=== PATIENT | female | born 1995 ===

== ENCOUNTER 2016-09-11 06:34 | Emergency (ER) | payer OTHER ==
[2016-09-11 06:46] VITALS: BMI 31.4
--- NOTE | 2016-09-11 11:55 | OBDCSUM ---
Datetime: 09/11/2016 09:24 Discharged to, Provider: Home Follow up at, Provider: [facility] Disch Instr Activity: Normal activity Disch Instr Diet: Regular Discharge Diagnosis, Provider: Term Delivered Discharge Time: 09/11/2016 09:28 Follow up in weeks, Provider: August @ 10:00 Disch Referrals: None
--- NOTE | 2016-09-11 11:56 | OBHP ---
Datetime: 09/11/2016 09:30 IP Adm Impression: Term, intrauterine ; No Active Labor; Intact Membranes IP Admit Plan: Discharge home Admit Comment, IP Provider: Patient was seen and examined at bedside. No LOF and/or vaginal bleeding . PE:VE: No cervix changes noted. -Reassuring FHR Plan: Patient is stable to be discharge home. -Ambulation at Home was encouraged -Maintain good hydration -Labor precautions provided. Patient verbalized understanding. -Case discussed with Dr. Crystal Oconnor PGY1 Agree with above...ANGI FHR - Baseline A Provider: 130 Membranes, Provider: Intact IP Hx Assessment: The History has been Reviewed and is Current EGA AdmitDate IP: 39.3 Vital Signs Provider: Reviewed; Within Normal Limits IP Chief Complaint: Uterine contractions; Maternal discomfort NICHD Variability Prov Fetus A: Moderate 6-25bpm NICHD Accel Fetus A IP Provider: 15X15 FHR Category Provider Fetus A: Category I NICHD Decel Fetus A IP Provider: None Datetime: 09/11/2016 08:00 Pelvic Type - PN: Adequate Extremities - PN: Normal Heart - PN: Normal Thyroid - PN: Normal Neurologic - PN: Normal HEENT - PN: Normal General - PN: Normal Weight - Estimated: 3266 Presentation-Admit: Vertex Comments, ACOG Physical Exam: ROS: General - no fatigue HEENT: No SHI; no visual disturbance CV: no CP; no palpitations RESP: No Cough; no SOB GI: No N/V/D : No F/U/D MS: no joint pain Gestation - Est Wks by US: 39.0 Genitourinary Exam: Normal
== END 2016-09-11 09:30 | disposition home or self-care (01) ==
LOC: H.EROB2 06:34
DX: O47.1 False labor at or after 37 completed weeks of gestation (principal); Z3A.39 39 weeks gestation of pregnancy

== ENCOUNTER 2016-09-16 14:00 | Inpatient (IN) | payer OTHER ==
[2016-09-16 14:44] VITALS: BMI 31.8
--- NOTE | 2016-09-16 14:52 | OBHP ---
Datetime: 09/16/2016 14:45 IP Adm Impression: Term, intrauterine Admit Comment, IP Provider: 20-year-old 010 at 40 weeks and 1 day gestational age complains of uterine contractions. Patient denies any vaginal bleeding or leakage of fluids. Patient reports good movement. records reviewed. course unremarkable. Past medical history none Past surgical history none Medications vitamins No known drug allergies Obstetrical history elective termination of 1 Social history no tobacco, no alcohol, no drugs Physical exam: Refer to physical exam findings Assessment: 20-year-old at 40 weeks 1 day gestational age with complaints of contractions, no evidence o f active labor at this time. Both maternal well-being and well-being reassuring at this time. Plan: We will observe patient had OB ED for signs of labor. Discussed plan with patient and all patient questions answered. Pelvic Type - PN: Adequate Extremities - PN: Normal Abdomen - PN: Normal Back - PN: Normal Breast - PN: Normal Lungs - PN: Normal Heart - PN: Normal Thyroid - PN: Normal Neurologic - PN: Normal HEENT - PN: Normal General - PN: Normal FHR - Baseline A Provider: 130s Membranes, Provider: Intact Contraction Comments Provider: q2-3min Pool Provider: Negative IP Hx Assessment: The History has been Reviewed and is Current EGA AdmitDate IP: 40.1 Vital Signs Provider: Reviewed; Within Normal Limits IP Chief Complaint: Uterine contractions NICHD Variability Prov Fetus A: Moderate 6-25bpm NICHD Accel Fetus A IP Provider: 15X15 FHR Category Provider Fetus A: Category I NICHD Decel Fetus A IP Provider: None Dilatation, Provider: 1-2 Effacement, Provider: 50 Station, Provider: -3 Genitourinary Exam: Normal DTRs - PN: Normal
[2016-09-16] MEDS: Lactated Ringer's 1,000 ML IV SCH ×2 (15:00→20:00)
[2016-09-16 15:35] LABS: BASO # 0.1 K/uL (0.0-0.2); BASO % 0.6 % (0.0-2.0); EOS # 0.1 K/uL (0.0-0.7); EOS % 1.2 % (0.0-4.0); HEMATOCRIT 35.9 % (34.0-47.0); LYMPH # 2.1 K/uL (1.0-4.3); MEAN CELL VOLUME 84.2 fl (81.0-99.0); MEAN CORPUSCULAR HEMOGLOBIN 28.1 pg (27.0-31.0); MEAN CORPUSCULAR HGB CONC 33.4 g/dL (33.0-37.0); MEAN PLATELET VOLUME 8.9 fl (7.2-11.7); MONO # 0.7 K/uL (0.0-0.8); MONO % 6.1 % (0.0-10.0); NEUT % 73.1 % (50.0-75.0); RED CELL DISTRIBUTION WIDTH 16.2 % (11.5-14.5); WHITE BLOOD COUNT 10.9 K/uL (4.8-10.8)
[2016-09-16] MEDS ORDERED: Nalbuphine 20 mg/ml Inj (1 ml) IVP ONE (20:13)
[2016-09-16] MEDS ORDERED: Fentanyl/Bupivacaine HCl 250 ML EPI ONE (23:38)
[2016-09-16] MEDS ORDERED: Bupivacaine HCl 0.25% PF (10 ml) Inj ONE (23:39)
[2016-09-17] MEDS ORDERED: Oxytocin 30 units/LR 500ML 500 ML IV ONE (03:00)
[2016-09-17] MEDS: Lactated Ringer's 1,000 ML IV SCH (08:18)
[2016-09-17] MEDS ORDERED: Lidocaine 1% Inj (20ml) ONE (08:57)
[2016-09-17] MEDS ORDERED: Bupivacaine HCl 0.25% PF (10 ml) Inj ONE (09:27)
--- NOTE | 2016-09-17 09:28 | OBPN ---
Datetime: 09/16/2016 20:10 IP Progress Impression: Normal progression of labor IP Progress Plan: Continue present management Membranes, Provider: Ruptured Contraction Comments Provider: q2-6min FHR - Baseline A Provider: 145 Gestation - Est Wks by US: 40.1 Presentation-Admit: Vertex IP Progress Note Comment: s: +rectal pressure with ctxs; denies h/a, scotomata, va disturbances o: rt side rim from 9-1:oo -1 to 0/100% i: 40.2wks Labor p: expectant vd maternal repositioing allow to labor down. Vital Signs Provider: Reviewed NICHD Accel Fetus A IP Provider: 15X15 FHR Category Provider Fetus A: Category I NICHD Variability Prov Fetus A: Moderate 6-25bpm NICHD Decel Fetus A IP Provider: None Datetime: 09/16/2016 14:45 Pool Provider: Negative Dilatation, Provider: 1-2 Effacement, Provider: 50 Station, Provider: -3 Datetime: 09/11/2016 08:00 Weight - Estimated: 3266 Datetime: 08/05/2016 22:41 Vital Signs Provider Details: heart reate 122
[2016-09-17 10:35] VITALS: TEMP 101.5
--- NOTE | 2016-09-17 13:44 | OBDS ---
DELIVERY PERSONNEL Delivery Doctor: Yang Palafox MD Visual Educator: S Rideg/ E Victor M MATERNAL INFORMATION Delivery Anesthesia: Epidural Medications in Delivery: pitocin 30 units in 500 ml lr Estimated Blood Loss (ml): 250 Placenta Cultured: No Maternal Complications: None Provider Comments: Intrapartum Dx: 40.2wks; labor PP Dx: same Procedure: ; placenta delivered spontaneoulsy and intact Ob: orossetos Anesth: epidural Findings: viable female; 3760g; 9_9 no complications Pt and remained in br ebl: 250cc LABOR SUMMARY EDC: 09/15/2016 00:00 No. Babies in Womb: 1 Attempted: No Labor Anesthesia: Epidural LABOR INFORMATION Reason for Induction: Not Applicable Onset of Labor: 09/17/2016 01:50 Complete Dilatation: 09/17/2016 06:10 Oxytocin: Augmentation Group B Beta Strep: Negative Steroids Given: None Reason Steroids Not Administered: Not Applicable MEMBRANES Membranes Rupture Method: Spontaneous Rupture of Membranes: 09/17/2016 01:45 Length of Rupture (hrs): 9.50 Amniotic Fluid Color: Clear Amniotic Fluid Amount: Moderate Amniotic Fluid Odor: Normal STAGES OF LABOR Stage 1 hrs: 4 Stage 1 min: 20 Stage 2 hrs: 5 Stage 2 min: 5 Stage 3 hrs: 0 Stage 3 min: 5 Total Time in Labor hrs: 9 Total Time in Labor min: 30 VAGINAL DELIVERY Episiotomy: None Laceration Extension: N/A Laceration Type: Periurethral Laceration Repair: Not Applicable Laceration Repair Note: bialteral hemostatic 1st degree periurethral lacerations- no repair indicate d Initial Vag Sponge Count: 5 Final Vag Sponge Count: 5 Initial Vag Sharps Count: 0 Final Vag Sharps Count: 0 Sponge Count Correct: Yes Sharps Count Correct: Yes BABY A INFORMATION Delivery Date/Time: 09/17/2016 11:15 Method of Delivery: Vaginal Born in Route : No : N/A Forceps: N/A Vacuum Extraction: N/A Shoulder Dystocia : No SHOULDER DYSTOCIA BABY A Infant Delivery Date/Time: 09/17/2016 11:15 PRESENTATION/POSITION BABY A Presentation: Cephalic Cephalic Presentation: Vertex Breech Presentation: N/A PLACENTA INFORMATION BABY A Placenta Delivery Time : 09/17/2016 11:20 Placenta Method of Delivery: Spontaneous Placenta Status: Delivered SCORES BABY A Heart Rate 1 min: >100 bpm Resp Effort 1 min: Good Cry Reflex Irritability 1 min: Cough or Sneeze or Pulls Away Muscle Tone 1 min: Active Motion Color 1 min: Body [place], Extremities Blue SCORE 1 MIN: 9 Heart Rate 5 min: >100 bpm Resp Effort 5 min: Good Cry Reflex Irritability 5 min: Cough or Sneeze or Pulls Away Muscle Tone 5 min: Active Motion Color 5 min: Body [place], Extremities Blue SCORE 5 MIN: 9 INFORMATION BABY A Gestational Age at Delivery: 40.2 Gestational Status: Term Outcome : Liveborn Infant Condition : Stable Sex: Female WEIGHT/LENGTH BABY A Birthweight (gms): 3760 Weight (lb): 8 Weight (oz): 5 CORD INFORMATION BABY A No. Cord Vessels: 3 Nuchal Cord : N/A Cord Blood Taken: Yes Infant Suction: Mouth; Nose
[2016-09-17] MEDS ORDERED: Oxycodone/Acetaminophen 5/325 mg Tab PO PRN (14:44)
[2016-09-18 06:48] LABS: BASO # 0.1 K/uL (0.0-0.2); BASO % 0.9 % (0.0-2.0); EOS # 0.2 K/uL (0.0-0.7); EOS % 1.8 % (0.0-4.0); HEMATOCRIT 32.1 % (34.0-47.0); LYMPH # 3.2 K/uL (1.0-4.3); LYMPH % 28.2 % (20.0-40.0); MEAN CELL VOLUME 83.8 fl (81.0-99.0); MEAN CORPUSCULAR HEMOGLOBIN 27.9 pg (27.0-31.0); MEAN CORPUSCULAR HGB CONC 33.3 g/dL (33.0-37.0); MEAN PLATELET VOLUME 8.8 fl (7.2-11.7); MONO # 0.7 K/uL (0.0-0.8); MONO % 6.6 % (0.0-10.0); NEUT # 7.1 K/uL (1.8-7.0); NEUT % 62.5 % (50.0-75.0); RED CELL DISTRIBUTION WIDTH 16.3 % (11.5-14.5); WHITE BLOOD COUNT 11.4 K/uL (4.8-10.8)
--- NOTE | 2016-09-18 09:56 | OBPPN ---
Datetime: 09/18/2016 06:09 PP Pain Prov: Within normal limits PP Nausea Prov: Denies PP Flatus Prov: Yes PP BM Prov: No PP Breasts Prov: Normal PP Heart Prov: Normal PP Lungs Prov: Normal PP Abdomen/Uterus Prov: Normal PP Lochia Prov: Normal PP Vulva/Perineum Prov: Normal PP CVA Tenderness Prov: Normal PP Extremities Prov: Normal PP C/S Incision Prov: Not Applicable PP Progress Prov: Normal PP Comments Phys Exam Prov: No acute distress. Comfortable in bed. Lungs CTA b/l. RRR S1S2. Abd: soft, uterus umb level firm. +BS no calf tenderness Alert, oriented PP Impression Prov: Normal progression PP Plan Prov: Continue present management PP Progress Note Prov: PPD1 Patient seen at bedside on PPD1 s/p NVD. Denies nausea, vomiting or headache. Lochia less t/menses , pain is controlled with motrin. +Flatus, no BM yet. Voiding with no difficulty. Ambulating with no difficulty. Tolerating PO. Denies calf pain. O:See above A: 20 y/o S/P NVD on PPD1 normal progression P: Cont Motrin PRN for pain Cont Reg diet Encourage ambulation Encourage Anticipated DC 09/19/16 Osito Gallegos PGY1 Addendum by Dr. Shetty: Patient evaluated independently by myself and I agree with the above. Patie nt is PPD #1, continue routine orders IP PP Procedures: None Vital Signs Provider PP: Reviewed; Within Normal Limits
[2016-09-18] MEDS: Multivitamin With Minerals Tab PO SCH (10:02)
[2016-09-19] MEDS: Multivitamin With Minerals Tab PO SCH (09:30)
[2016-09-19] MEDS: Lactated Ringer's 1,000 ML IV SCH ×2 (10:49→10:50)
--- NOTE | 2016-09-19 11:35 | OBPPN ---
Datetime: 09/19/2016 07:50 PP Pain Prov: Within normal limits PP Nausea Prov: Denies PP Flatus Prov: Yes PP BM Prov: Yes PP Breasts Prov: Normal PP Heart Prov: Normal PP Lungs Prov: Normal PP Abdomen/Uterus Prov: Normal PP Lochia Prov: Normal PP Extremities Prov: Normal PP C/S Incision Prov: Not Applicable PP Progress Prov: Normal PP Comments Phys Exam Prov: Abdomen: Soft, mild distended that correlates with abd, no te nder to palpation. No rigidity or guarding. Uterus firm at umbilicus level. BS + Ext: no edema, no calf tenderness, Tay's sign negative B/L. PP Impression Prov: Normal progression PP Plan Prov: Discharge PP Progress Note Prov: PPD2 Patient was seen and examined at bedside. Lochia less than menses, and decreasing progessively. P ain is well controlled with Ibuprofen. Voiding with no difficulty. Passing flatus, and had a normal b owel movement yesterday. Ambulating on her own. Tolerating reg diet. Denies pain, nausea, vomiting an d/or other complains at this evalaution. O:See above A: 20 y/o S/P NVD on PPD2 with normal progression P: -Stable to be discharged home today. -Continue with Ibuprofen for pain control as needed at home. -Cont Reg diet -Continue . -Maintain good hydration and ambulation at home -F/U with OBGYN in 4-6 weeks for evaluation. -F/U in 2-3 days with PMD/[employer] -ER precautions provided. Carisa Oconnor PGY1 ob nickm: pt seen _ examined by me. agree with above assessment and plan. d/w pt pp contraception- IUD, implanon continue w/ pnv as mv of choice IP PP Procedures: None Vital Signs Provider PP: Reviewed; Within Normal Limits
--- NOTE | 2016-09-19 11:35 | OBDCSUM ---
Datetime: 09/19/2016 08:37 Discharged to, Provider: Home Follow up at, Provider: [facility]BGYN Disch Instr Activity: Normal activity Disch Instr Diet: Regular Discharge Instructions, Provider: Routine instructions given Discharge Diagnosis, Provider: Term Delivered Discharge Time: 09/19/2016 11:30 Follow up in weeks, Provider: 4-6 weeks at [facility] Contraception discussed, Prov: Yes Disch Activity Restrictions: No exercising; No lifting; No driving; No sexual activity; Nothing in v agina - [place], tampons, douche Discharge Comment, Provider: 20 y/o S/P NVD on PPD2 with normal progression P: -Stable to be discharged home today. -Continue with Ibuprofen for pain control as needed at home. -Cont Reg diet -Continue . -Maintain good hydration and ambulation at home -F/U with OBGYN in 4-6 weeks for evaluation. 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 Carisa Oconnor PGY1 [facility] vania: pt seen _ examined by me. agree with above assessment and plan. d/w pt pp contraception- IUD, implanon continue w/ pnv as mv of choice Contraception after Delivery: Undecided
== END 2016-09-19 12:00 | disposition home or self-care (01) | DRG 373 ==
LOC: H.EROB2 14:00 → H.L&D 20:10 → H.OB/GYN 09-17 14:29
PROVIDERS: ADMIT Obstetrics & Gynecology; ATTEND Obstetrics & Gynecology
PROC: 10E0XZZ Delivery of Products of Conception, External Approach (ICD-10-PCS; principal; 2016-09-16)
PROC: 4A1HXCZ Monitoring of Products of Conception, Cardiac Rate, External Approach (ICD-10-PCS; 2016-09-16)
DX: O48.0 Post-term pregnancy (principal); Z37.1 Single stillbirth; O99.02 Anemia complicating childbirth; Z37.0 Single live birth; Z3A.40 40 weeks gestation of pregnancy; O71.82 Other specified trauma to perineum and vulva